=== PATIENT | female | born 1945 | race African-American/Black ===

== ENCOUNTER 2024-07-03 14:21 | Emergency (ER) | payer OTHER ==
[~2024-07-03] VITALS: Ht 167.6 cm; Wt 73.0 kg
[2024-07-03 14:25] VITALS: O2SAT 100
[2024-07-03 16:14] VITALS: BP 179/82; PULSE 74; RESP 18; TEMP 37.1; O2SAT 98
== END 2024-07-03 16:39 | disposition home or self-care (01) ==
LOC: ER 14:21
DX: S20.219A Contusion of unspecified front wall of thorax, initial encounter (principal); E78.00 Pure hypercholesterolemia, unspecified; I10 Essential (primary) hypertension; V43.52XA Car driver injured in collision with other type car in traffic accident, initial encounter; Y93.89 Activity, other specified; Y92.89 Other specified places as the place of occurrence of the external cause; Y99.8 Other external cause status
CPT/HCPCS: 71045; 93005; 99283